=== PATIENT | male | born 1945 | race Hispanic/Latino ===

== ENCOUNTER 2016-10-15 16:58 | Emergency (ER) | payer OTHER ==
[2016-10-15] MEDS ORDERED: PREDNISONE 50 MG TAB ONE (20:58)
[2016-10-15] MEDS ORDERED: DUONEB INH ONE ×2 (21:01)
== END 2016-10-15 22:32 | disposition home or self-care (01) ==
LOC: ER 16:58
DX: J20.9 Acute bronchitis, unspecified (principal)
CPT/HCPCS: 36415 ×2; 71020 ×2; 80053 ×2; 82553 ×2; 84484 ×2; 85025 ×2; 87804 ×2; 87880 ×2; 93005 ×2; 94640 ×2; 99284; J7512